=== PATIENT | male | born 1945 | race Caucasian/White ===

== ENCOUNTER 2019-03-30 10:42 | Emergency (ER) | payer MEDICARE, OTHER ==
[~2019-03-30] VITALS: Ht 175.3 cm; Wt 93.9 kg
[~2019-03-30 10:42] MED LIST: ASPI-480 PO; CARV12.5 PO; CEPH500C PO; DOCU100T7 PO; HYDR-3876 PO; IBUP400T22 PO; OMEG1CAP51 PO; PRAV40TA PO
--- NOTE | 2019-03-30 11:08 | Diagnostic Imaging Report ---
INDICATION: Ankle pain and swelling. COMPARISON: None available. TECHNIQUE: 3 radiographs of the right ankle dated 03/30/2019. FINDINGS: No acute fracture or dislocation. No destructive osseous process. Talar dome is unremarkable. Ankle mortise is symmetric. Moderate scattered vascular calcifications. Small plantar calcaneal enthesophyte. IMPRESSION: No acute osseous abnormality with mild degenerative changes. Moderate scattered vascular calcifications. Dictated by: Dictated on workstation # [id number]
--- NOTE | 2019-03-30 11:22 | ED Lower Extremity ---
General Chief Complaint: Lower Extremity Stated Complaint: RT ANKLE PAIN Nursing Triage Note: PT REPORTS HIS RIGHT ANKLE STARTED HURTING AND SWELLING ABOUT AN HOUR AGO. DOESNT RECALL AN INJURY. Nursing Sepsis Screen: No Definite Risk Source: patient Exam Limitations: no limitations History of Present Illness Date Seen by Provider: Mar 30, 2019 Time Seen by Provider: 11:00 Initial Comments Patient is a 73-year-old male presents with atraumatic right ankle pain. Patient was ambulating this morning when he noticed swelling and tenderness and pain over the superior aspect of his lateral malleolus. Denies trauma injury. No erythema, bruising or warmth noted. No history of gout. Patient reports significant pain with ambulation. History of osteoarthritis. Onset: this morning Pain/Injury Location: right ankle Method of Injury: other Allergies and Home Medications Allergies Coded Allergies: No Known Drug Allergies (Unverified , 06/05/14) Home Medications Carvedilol 12.5 Mg Tablet, 12.5 MG PO BID, (Reported) Cephalexin Monohydrate 500 Mg Capsule, 1 EACH PO BID Prescribed by: ESTEFANI GARDUNO on 06/11/14 0954 Docusate Sodium 100 Mg Tablet, 100 MG PO DAILY, (Reported) Hydrocodone/Acetaminophen 1 Each Tablet, 1-2 EACH PO Q4H PRN for PAIN Prescribed by: ESTEFANI GARDUNO on 06/11/14 0954 Ibuprofen 400 Mg Tablet, 400 MG PO BID, (Reported) Stickney-3 Fatty Acids/Fish Oil 1 Each Capsule, 1 EACH PO DAILY, (Reported) Pravastatin Sodium 40 Mg Tablet, 40 MG PO HS, (Reported) Tramadol HCl 50 Mg Tablet, 50 MG PO Q6H PRN for PAIN Prescribed by: FANNY VENTURA on 03/30/19 1129 Patient Home Medication List Home Medication List Reviewed: Yes Review of Systems Constitutional: see HPI EENTM: no symptoms reported Respiratory: no symptoms reported Gastrointestinal: no symptoms reported Genitourinary: no symptoms reported Musculoskeletal: see HPI, joint pain Skin: no symptoms reported Psychiatric/Neurological: No Symptoms Reported Past Jnyyujz-Kdqinx-Ugmpla Hx Past Med/Social Hx: Reviewed Nursing Past Med/Soc Hx Patient Social History Alcohol Use: Denies Use Recreational Drug Use: No Smoking Status: Never a Smoker 2nd Hand Smoke Exposure: No Recent Foreign Travel: No Contact w/Someone Who Travel: No Recent Infectious Disease Expo: No Recent Hopitalizations: No Physical Abuse: No Sexual Abuse: No Mistreated: No Fear: No Immunizations Up To Date Date of Influenza Vaccine: May 11, 2014 Seasonal Allergies Seasonal Allergies: No Past Medical History Surgeries: Yes (right shoulder, orchiectomy, rotator cuff right, ) CABG, Orthopedic, Prostatectomy Respiratory: No Cardiac: Yes Coronary Artery Disease, High Cholesterol, Hypertension, Peripheral Vascular Neurological: Yes Stroke Genitourinary: Yes Prostate Problems Gastrointestinal: Yes (colon cancer) Arthritis, Chronic Back Pain Endocrine: No HEENT: No Cancer: Yes Colon What Type of Treatment Did You: Surgical Intervention Psychosocial: No Blood Disorders: No Physical Exam Vital Signs Vital Signs - First Documented 03/30/19 10:47 Temp 97.1 Pulse 71 Resp 18 B/P (MAP) 157/44 (81) Pulse Ox 98 O2 Delivery Room Air Capillary Refill : Less Than 3 Seconds Height, Weight, BMI Height: 5'9.00" Weight: 207lbs. oz. 93.513375li; BMI Method:Stated General Appearance: WD/WN HEENT: PERRL/EOMI Neck: full range of motion, supple Ankles: right ankle pain, right ankle soft tissue tenderness, right ankle swelling Neurologic/Tendon: normal sensation, normal motor functions Neurologic/Psychiatric: no motor/sensory deficits, oriented x 3 Skin: normal color, warm/dry; No rash Lymphatic: no adenopathy Progress/Results/Core Measures Results/Orders My Orders Orders - FANNY VENTURA DO Ankle 3 View Right (03/30/19 10:54) Hydrocodone/Apap 5/325 Tablet (Lortab 5 (03/30/19 11:30) Nursing Communication (Order) (03/30/19 11:26) Vital Signs/I&O 03/30/19 10:47 Temp 97.1 Pulse 71 Resp 18 B/P (MAP) 157/44 (81) Pulse Ox 98 O2 Delivery Room Air Blood Pressure Mean: 81 Departure Communication (Admissions) Atraumatic right ankle pain without evidence of infection or fracture on imaging studies. Recommendations are supportive care with PCP follow-up. Impression Primary Impression: Acute right ankle pain Disposition: HOME, SELF-CARE Condition: Improved Departure-Patient Inst. Referrals: DRU HERNANDEZ MD (PCP/Family) Primary Care Physician Patient Instructions: Osteoarthritis Scripts Tramadol HCl (Tramadol HCl) 50 Mg Tablet 50 MG PO Q6H PRN for PAIN for 3 Days, #12 TAB 0 Refills Prov: FANNY VENTURA DO 03/30/19 FANNY VENTURA DO Mar 30, 2019 11:22
[2019-03-30] MEDS ORDERED: TRAM50TA2 PO (11:29)
[2019-03-30] MEDS ORDERED: HYDROcodone/APAP 5 MG/325 MG (LORTAB) TAB PO ONE (11:30)
[2019-03-30 11:43] VITALS: BP 157/44
== END 2019-03-30 11:40 | disposition home or self-care (01) ==
LOC: EDUNIT# 10:42 → ER FS 10:44
DX: M25.571 Pain in right ankle and joints of right foot (principal); I25.10 Atherosclerotic heart disease of native coronary artery without angina pectoris; E78.00 Pure hypercholesterolemia, unspecified; I10 Essential (primary) hypertension; I73.9 Peripheral vascular disease, unspecified; Z95.1 Presence of aortocoronary bypass graft; Z86.73 Personal history of transient ischemic attack (TIA), and cerebral infarction without residual deficits; Z85.038 Personal history of other malignant neoplasm of large intestine
CPT/HCPCS: 73610